=== PATIENT | female | born 1945 | race African-American/Black ===

== ENCOUNTER 2022-01-26 21:10 | Emergency (ER) | payer BC, OTHER ==
[~2022-01-26] VITALS: Ht 160 cm; Wt 73.0 kg
[~2022-01-26 21:10] MED LIST: AMLO1CAP6; ATEN100T; LOSA100T3
[2022-01-26 23:18] LABS: HEMATOCRIT 36.7 % (36.0-48.0); HEMOGLOBIN 12.3 g/dL (12.0-16.0); MEAN CORPUSCULAR HEMOGLOBIN 30.5 pg (28.0-32.0); PLATELET 204 x1000/uL (130-400); RED BLOOD CELL COUNT 4.04 mill/uL (4.2-5.4); RED CELL DISTRIBUTION WIDTH 13.4 % (11.6-14.6)
[2022-01-26 23:26] LABS: CHLORIDE 105 mEq/L (98-107)
[2022-01-27 04:40] LABS: CLARITY URINE CLEAR (CLEAR); COLOR URINE YELLOW (YELLOW); KETONES URINE NEGATIVE (NEGATIVE); LEUKOCYTE ESTERASE URINE TRACE (NEGATIVE); NITRITE URINE POSITIVE (NEGATIVE); OCCULT BLOOD URINE NEGATIVE (NEGATIVE); PROTEIN URINE TRACE (NEGATIVE); SPECIFIC GRAVITY URINE 1.017 (1.005-1.030)
[2022-01-27] MEDS ORDERED: CEPH500C2 MT (04:42)
[2022-01-27] MEDS ORDERED: CEPHALEXIN 250MG CAPSULE PO ONE (04:45)
[2022-01-27 05:10] VITALS: BP 141/67
== END 2022-01-27 05:40 | disposition home or self-care (01) ==
LOC: ER 21:10
DX: N39.0 Urinary tract infection, site not specified (principal); R05.9 Cough, unspecified; Z20.822 Contact with and (suspected) exposure to COVID-19; I10 Essential (primary) hypertension
CPT/HCPCS: 36415; 70450; 71045; 80053; 81003; 84484; 85027; 87426; 93005; 99285; C9803